=== PATIENT | female | born 1970 | race African-American/Black ===

== ENCOUNTER 2017-03-05 15:55 | Emergency (ER) | payer SELFPAY ==
--- NOTE | 2017-03-05 16:17 | ER Document Report ---
HPI - HPI Notes: Patient is a 46-year-old female presents the ED complaining of bilateral ear pain left greater than the right 1 week. Patient states that sometimes she hears an airy sound. Denies any tinnitus, dizziness, or discharge. No recent swimming. Patient states that she does have a history of a perforation to the left tympanic membrane more than 10 years ago. Denies any headache, fever, URI , sore throat, dysphagia, chest pain, palpitations, syncope, cough, wheeze, shortness of breath, abdominal pain, nausea/vomiting/diarrhea, dysuria, joint pains, muscle aches, numbness/tingling, or rash. Patient states she does have an allergy to penicillins-swelling. She does not take any medications daily. Denies any other significant past medical history. Denies any smoking or illicit drug use. - ROS Notes: REVIEW OF SYSTEMS: CONSTITUTIONAL : Denies fever, chills, or sweats. Denies recent illness. EENT: see hpi CARDIOVASCULAR: Denies chest pain. Denies palpitations or racing or irregular heart beat. Denies ankle edema. RESPIRATORY: Denies cough, cold, or chest congestion. Denies shortness of breath, difficulty breathing, or wheezing. GASTROINTESTINAL: Denies abdominal pain or distention. Denies nausea, vomiting , or diarrhea. Denies blood in vomitus, stools, or per rectum. Denies black, tarry stools. Denies constipation. GENITOURINARY: Denies difficulty urinating, painful urination, burning, frequency, blood in urine, or discharge. MUSCULOSKELETAL: Denies back or neck pain or stiffness. Denies joint pain or swelling. SKIN: Denies rash, lesions or sores. NEUROLOGICAL: Denies confusion or altered mental status. Denies passing out or loss of consciousness. Denies dizziness or lightheadedness. Denies headache. Denies weakness or paralysis or loss of use of either side. Denies problems with gait or speech. Denies sensory loss, numbness, or tingling. Denies seizures. PSYCHIATRIC: Denies anxiety or stress. Denies depression, suicidal ideation, or homicidal ideation. ALL OTHER SYSTEMS REVIEWED AND NEGATIVE. Dictation was performed using [employer] voice recognition software - REPRODUCTIVE Reproductive: DENIES: : Past Medical History - Social History Smoking Status: Never Smoker Family History: Arthritis Past Surgical History: Reports: Hx Tubal Ligation - Immunizations Hx Diphtheria, Pertussis, Tetanus Vaccination: Yes Vertical Provider Document - CONSTITUTIONAL Agree With Documented VS: Yes Notes: PHYSICAL EXAMINATION: GENERAL: Well-appearing, well-nourished and in no acute distress. HEAD: Atraumatic, normocephalic. EYES: Pupils equal round and reactive to light, extraocular movements intact, sclera anicteric, conjunctiva are normal. ENT: EAC clear b/l. Non-tender. Lt TM shows large perforation without any evidence or erythema or discharge. Rt TM wnl. Nares patent and without discharge. oropharynx clear without exudates. No tonsilar hypertrophy or erythema. Moist mucous membranes. No sinus tenderness. NECK: Normal range of motion, supple without lymphadenopathy. No rigidity/ meningismus. LUNGS: Breath sounds clear to auscultation bilaterally and equal. No wheezes rales or rhonchi. HEART: Regular rate and rhythm without murmurs, rubs, gallops. Extremities: No cyanosis, clubbing, or edema b/l. Peripheral pulses 2+. Capillary refill less than 3 seconds. NEUROLOGICAL: Cranial nerves grossly intact. Normal speech, normal gait. Normal sensory, motor exams PSYCH: Normal mood, normal affect. SKIN: Warm, Dry, normal turgor, no rashes or lesions noted. - INFECTION CONTROL TRAVEL OUTSIDE OF THE [place] IN LAST 30 DAYS: No Course - Re-evaluation Re-evalutation: 03/05/17 16:34 Patient is an afebrile, well-hydrated, 46-year-old female presents to the ED with a left TM perforation; although history would suggest chronic. Vitals are stable. PE otherwise unremarkable. Low suspicion for any mastoiditis, sepsis, meningitis, pharyngeal abscess, jerome's, or other systemic infection at this time based on H&P. I will give the patient clindamycin twice a day for 1 week as precaution due to the increased pain in the ear perforation. I would like her to call ENT on Tuesday to schedule an appointment. Recheck with your PCM this week as well. Return to the ED with any worsening/concerning symptoms otherwise as reviewed in discharge. Patient is in agreement. Discharge - Discharge Clinical Impression: Perforation of left tympanic membrane, Otalgia of both ears Condition: Stable Disposition: HOME, SELF-CARE Additional Instructions: Keep the ears clean Avoid use of Q-tips Tylenol as needed Take medication as directed Call ENT on Tuesday for an appointment and further evaluation Recheck with your PCM this week Return to the ED with any worsening symptoms and/or development of fever, headache, dizziness, ringing in ears, neck pain/stiffness, chest pain, palpitations, syncope, shortness of breath, trouble breathing, abdominal pain, n /v/d, numbness/tingling, or other worsening symptoms that are concerning to you. Please contact the following office for an appointment tomorrow or returm immediately if there are any other concerns [facility] Address: [address] [place] [id number] Prescriptions: Clindamycin HCl [Cleocin 300 mg Capsule] 300 mg PO BID #14 capsule Referrals: WOODROW LUCERO MD [ACTIVE STAFF] - Follow up in 3-5 days
[2017-03-05 16:40] VITALS: BP 143/86
== END 2017-03-05 16:42 | disposition home or self-care (01) ==
LOC: ER 15:55
DX: H72.92 Unspecified perforation of tympanic membrane, left ear (principal); H92.03 Otalgia, bilateral
CPT/HCPCS: 99282

== ENCOUNTER 2017-07-05 11:29 | Emergency (ER) | payer SELFPAY ==
[2017-07-05 11:35] VITALS: BP 167/91
--- NOTE | 2017-07-05 11:44 | ER Document Report ---
ED Medical Screen (RME) - General Chief Complaint: Abdominal Pain Stated Complaint: ABDOMINAL PAIN Time Seen by Provider: 07/05/17 11:42 Notes: Patient with right upper quadrant pain for 1 week this gotten worse over the last 2 days. Some nausea. She states she does have a history of fibroid tumors. She denies any previous abdominal surgeries other than tubal ligation. TRAVEL OUTSIDE OF THE [place] IN LAST 30 DAYS: No - Related Data Allergies/Adverse Reactions: naproxen Allergy (Verified 07/05/17 11:33) Penicillins Allergy (Verified 07/05/17 11:33) Home Medications: Current Home Medications No Home Medications 07/05/17 [History] Past Medical History - Social History Chew tobacco use (# tins/day): No Frequency of alcohol use: Rare Drug Abuse: None Renal/ Medical History: Denies: Hx Peritoneal Dialysis Past Surgical History: Reports: Hx Tubal Ligation - Immunizations Hx Diphtheria, Pertussis, Tetanus Vaccination: Yes Physical Exam - Vital signs Vitals: Temp Pulse Resp BP Pulse Ox 98.3 F 76 16 167/91 H 99 07/05/17 11:34 07/05/17 11:34 07/05/17 11:34 07/05/17 11:34 07/05/17 11:34 Course - Vital Signs Vital signs: Temp Pulse Resp BP Pulse Ox 98.3 F 76 16 167/91 H 99 07/05/17 11:34 07/05/17 11:34 07/05/17 11:34 07/05/17 11:34 07/05/17 11:34
[2017-07-05 12:26] LABS: APPEARANCE,URINE CLOUDY; BILIRUBIN,URINE NEGATIVE (NEGATIVE); GLUCOSE, URINE NEGATIVE (NEGATIVE); KETONES,URINE NEGATIVE (NEGATIVE); LEUKOCYTE ESTERASE,URINE TRACE (NEGATIVE); NITRITE,URINE NEGATIVE (NEGATIVE); PROTEIN,URINE NEGATIVE (NEGATIVE); URINE SPECIFIC GRAVITY 1.013; UROBILINOGEN,URINE NEGATIVE mg/dL (<2.0)
[2017-07-05 12:38] LABS: ALANINE AMINOTRANSFERASE 23 U/L (9-52); ALBUMIN 3.9 g/dL (3.5-5.0); ALKALINE PHOSPHATASE 58 U/L (38-126); ANION GAP 12 (5-19); ASPARTATE AMINO TRANSFERASE 19 U/L (14-36); BILIRUBIN,DIRECT 0.4 mg/dL (0.0-0.4); BILIRUBIN,TOTAL 0.4 mg/dL (0.2-1.3); BLOOD UREA NITROGEN 13 mg/dL (7-20); CARBON DIOXIDE 27 mmol/L (22-30); CHLORIDE 104 mmol/L (98-107); CREATININE RESULT 0.82 mg/dL (0.52-1.25); GLUCOSE 117 mg/dL (75-110); SODIUM 142.9 mmol/L (137-145); TOTAL PROTEIN 7.6 g/dL (6.3-8.2)
[2017-07-05 14:38] LABS: ABSOLUTE BASOPHILS # (AUTO) 0.1 10^3/uL (0.0-0.2); ABSOLUTE EOSINOPHILS # (AUTO) 0.2 10^3/uL (0.0-0.6); ABSOLUTE LYMPHOCYTES (AUTO) 1.6 10^3/uL (0.5-4.7); ABSOLUTE MONOCYTES (AUTO) 0.5 10^3/uL (0.1-1.4); ABSOLUTE NEUT (AUTO) 3.7 10^3/uL (1.7-8.2); BASOPHILS % (AUTO) 1.4 % (0-2); EOSINOPHILS % (AUTO) 2.9 % (0-6); HEMATOCRIT 30.3 % (36.0-47.0); HEMOGLOBIN 9.1 g/dL (12.0-15.5); LYMPHOCYTES % (AUTO) 26.6 % (13-45); MEAN CORPUSCULAR HEMOGLOBIN 18.3 pg (27.0-33.4); MONOCYTES % (AUTO) 7.9 % (3-13); RED BLOOD COUNT 4.97 10^6/uL (3.72-5.28); RED CELL DISTRIBUTION WIDTH 20.7 % (11.5-14.0); SEGMENTED NEUTROPHILS % (AUTO) 61.2 % (42-78); WHITE BLOOD COUNT 6.1 10^3/uL (4.0-10.5)
--- NOTE | 2017-07-05 14:51 | RADIOLOGY REPORT (SQ) ---
EXAM DESCRIPTION: U/S ABDOMEN LIMITED W/O DOP COMPLETED DATE/TIME: 07/05/2017 2:12 pm REASON FOR STUDY: pain ruq COMPARISON: None. TECHNIQUE: Dynamic and static grayscale images acquired of the abdomen and recorded on PACS. Additio nal selected color Doppler and spectral images recorded. LIMITATIONS: None. FINDINGS: PANCREAS: No masses. Visualized pancreatic duct normal caliber. LIVER: No masses. Echotexture normal. LIVER VASCULATURE: Normal directional flow of the main portal vein and hepatic veins. GALLBLADDER: Gallbladder contracted. Echogenic foci with associated acoustical shadowing suggestive of gallstones.(MEHNAZ sign) ULTRASOUND-DETECTED RAY'S SIGN: Negative. INTRAHEPATIC DUCTS AND COMMON DUCT: CBD and intrahepatic ducts normal caliber. No filling defects. INFERIOR VENA CAVA: Normal flow. AORTA: No aneurysm. RIGHT KIDNEY: Normal size. Normal echogenicity. No solid or suspicious masses. No hydronephrosis. No calcifications. PERITONEAL AND RIGHT PLEURAL SPACE: No ascites or effusions. OTHER: No other significant findings. IMPRESSION: Cholelithiasis. TECHNICAL DOCUMENTATION: JOB ID: [id number] [employer]- All Rights Reserved
[2017-07-05 14:58] LABS: MEAN CORPUSCULAR VOLUME 61 fl (80-97)
[2017-07-05 15:00] LABS: ANISOCYTOSIS 2+; HYPOCHROMASIA 3+; MICROCYTOSIS 3+; OVALOCYTES SLIGHT; POIKILOCYTOSIS SLIGHT; POLYCHROMASIA SLIGHT
--- NOTE | 2017-07-05 15:59 | ER Document Report ---
ED General - General Chief Complaint: Abdominal Pain Stated Complaint: ABDOMINAL PAIN Time Seen by Provider: 07/05/17 11:42 TRAVEL OUTSIDE OF THE [place] IN LAST 30 DAYS: No - HPI Patient complains to provider of: Right upper quadrant abdominal pain Notes: Patient coming in for evaluation of right upper quadrant abdominal pain. Patient denies any nausea vomiting patient states bloated patient also complaining about amenorrhea. Patient states has a history of fibroids has not had a menstrual cycle approximately 2 months. Patient states she felt that she was probably undergoing early menopause. Patient states abdominal pain increased with food. Otherwise patient is resting comfortably. - Related Data Allergies/Adverse Reactions: naproxen Allergy (Verified 07/05/17 11:33) Penicillins Allergy (Verified 07/05/17 11:33) Past Medical History - Social History Smoking Status: Never Smoker Chew tobacco use (# tins/day): No Frequency of alcohol use: Rare Drug Abuse: None Family History: Arthritis Patient has suicidal ideation: No Patient has homicidal ideation: No Renal/ Medical History: Denies: Hx Peritoneal Dialysis Past Surgical History: Reports: Hx Tubal Ligation - Immunizations Hx Diphtheria, Pertussis, Tetanus Vaccination: Yes Review of Systems - Review of Systems Constitutional: No symptoms reported EENT: No symptoms reported Cardiovascular: No symptoms reported Respiratory: No symptoms reported Gastrointestinal: Abdominal pain, Nausea, Vomiting Genitourinary: No symptoms reported Female Genitourinary: No symptoms reported Musculoskeletal: No symptoms reported Skin: No symptoms reported Hematologic/Lymphatic: No symptoms reported Neurological/Psychological: No symptoms reported -: Yes All other systems reviewed and negative Physical Exam - Vital signs Vitals: Temp Pulse Resp BP Pulse Ox 98.3 F 76 16 167/91 H 99 07/05/17 11:34 07/05/17 11:34 07/05/17 11:34 07/05/17 11:34 07/05/17 11:34 Interpretation: Normal - General General appearance: Appears well, Alert - HEENT Head: Normocephalic, Atraumatic Eyes: Normal Pupils: PERRL - Respiratory Respiratory status: No respiratory distress Chest status: Nontender Breath sounds: Normal Chest palpation: Normal - Cardiovascular Rhythm: Regular Heart sounds: Normal auscultation Murmur: No - Abdominal Inspection: Normal Distension: No distension Bowel sounds: Normal Tenderness: Tender - Right upper quadrant tenderness mild no McBurney's point tenderness no Melara sign no guarding no rebound Organomegaly: No organomegaly - Back Back: Normal, Nontender - Extremities General upper extremity: Normal inspection, Nontender, Normal color, Normal ROM , Normal temperature General lower extremity: Normal inspection, Nontender, Normal color, Normal ROM , Normal temperature, Normal weight bearing. No: Parker's sign - Neurological Neuro grossly intact: Yes Cognition: Normal Orientation: AAOx4 Soraya Coma Scale Eye Opening: Spontaneous [place] Coma Scale Verbal: Oriented [place] Coma Scale Motor: Obeys Commands [place] Coma Scale Total: 15 Speech: Normal Motor strength normal: LUE, RUE, LLE, RLE Sensory: Normal - Psychological Associated symptoms: Normal affect, Normal mood - Skin Skin Temperature: Warm Skin Moisture: Dry Skin Color: Normal Course - Re-evaluation Re-evalutation: 07/05/17 18:49 Patient evaluation only shows cholelithiasis. Education the patient about gallstones was provided. Patient was encouraged follow-up primary care physician or surgeons provided. Patient states understanding will be discharged home. The patient presents with abdominal pain without signs of peritonitis or other life-threatening or serious etiology. The patient appears stable for discharge and has been instructed to return immediately if the symptoms worsen in any way, or in 8-12hr if not improved for re-evaluation. The patient has been instructed to return if the symptoms worsen or change in any way. - Vital Signs Vital signs: Temp Pulse Resp BP Pulse Ox 98.3 F 76 16 167/91 H 99 07/05/17 11:34 07/05/17 11:34 07/05/17 11:34 07/05/17 11:34 07/05/17 11:34 - Laboratory Result Diagrams: 07/05/17 13:30 07/05/17 11:55 Laboratory results interpreted by me: 07/05/17 07/05/17 07/05/17 11:55 11:55 13:30 Hgb 9.1 L Hct 30.3 L MCV 61 L MCH 18.3 L MCHC 30.0 L RDW 20.7 H Glucose 117 H Ur Leukocyte Esterase TRACE H Discharge - Discharge Clinical Impression: RUQ abdominal pain Cholelithiasis Qualifiers: Cholelithiasis location: gallbladder Cholecystitis presence: without cholecystitis Biliary obstruction: without biliary obstruction Qualified Code(s) : K80.20 - Calculus of gallbladder without cholecystitis without obstruction Condition: Good Disposition: HOME, SELF-CARE Instructions: Abdominal Pain ([facility]), Surgeon Additional Instructions: Your ultrasound today shows that you have gallstones. Gallstones can cause upper abdominal pain whenever you eat something with a lot of excess grease and/ or fat. These avoid these foods sometimes gallstones will continue to cause pain you can have your gallbladder removed by surgeon. At this time your laboratory studies not show any signs of infection your ultrasound does not show any signs of infection or need for emergent surgery. Please take medication as prescribed for your symptoms return to the ER symptoms worsen I recommend follow-up with your primary care or the surgeon provided. Prescriptions: Dicyclomine HCl [Bentyl 20 mg Tablet] 20 mg PO QID #40 tablet Metoclopramide HCl [Reglan] 5 mg PO Q6 #30 tablet [facility] [Primary Care Provider] - Follow up as needed
== END 2017-07-05 16:09 | disposition home or self-care (01) ==
LOC: ER 11:29
DX: K80.20 Calculus of gallbladder without cholecystitis without obstruction (principal); R10.11 Right upper quadrant pain
CPT/HCPCS: 36415; 76705; 80053; 81001; 81025; 83690; 85025; 99284

== ENCOUNTER 2018-07-04 16:46 | Emergency (ER) | payer SELFPAY ==
[2018-07-04 16:53] VITALS: BP 144/83
--- NOTE | 2018-07-04 18:22 | ER Document Report ---
ED Extremity Problem, Lower - General Chief Complaint: Leg Pain Stated Complaint: LEFT LEG PAIN Time Seen by Provider: 07/04/18 17:08 Mode of Arrival: Ambulatory Information source: Patient Notes: Patient is a 48-year-old morbidly obese female comes emergency room complaining of left leg pain. Patient states is been going on for months but is gotten worse in the past few days. Patient states that it is kind of like a toothache throbbing pain in the runs from the crease of her left groin down through the lower leg. He has both anterior and posterior she states that used to does wake her up out of sleep because it hurts so bad now she is having a difficult time falling asleep because it hurts constantly. 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 States she is on her feet constantly throughout the day never sits down. When she is home and ice when the pain starts. She denies any history of trauma denies any long trips and states she is never been one spot long enough to sit. She does not smoke and she does not have diabetes. She is not taking any additional hormones. She states she is very active but the pain is getting to the point where it is stopping her from becoming active. TRAVEL OUTSIDE OF THE [place] IN LAST 30 DAYS: No - HPI Patient complains to provider of: Pain. No: Injury, Swelling Location: Knee, Leg, Thigh Occurred: Other Where: Home - 1 month worse the last week., Work Onset/Duration: Gradual, Persistent, Worse Quality of pain: Pressure, Sharp, Throbbing Severity: Severe Pain Level: 4 Recent injury: No Associated symptoms: Weak Exacerbated by: Movement, Walking Relieved by: Nothing - Related Data Allergies/Adverse Reactions: naproxen Allergy (Verified 07/04/18 16:47) Penicillins Allergy (Verified 07/04/18 16:47) Past Medical History - General Information source: Patient - Social History Smoking Status: Never Smoker Cigarette use (# per day): No Chew tobacco use (# tins/day): No Smoking Education Provided: No Frequency of alcohol use: None Drug Abuse: None Lives with: Family Family History: Reviewed & Not Pertinent, Arthritis Patient has suicidal ideation: No Patient has homicidal ideation: No Renal/ Medical History: Denies: Hx Peritoneal Dialysis Past Surgical History: Reports: Hx Tubal Ligation - Immunizations Hx Diphtheria, Pertussis, Tetanus Vaccination: Yes Review of Systems - Review of Systems Constitutional: No symptoms reported EENT: No symptoms reported Cardiovascular: No symptoms reported Respiratory: No symptoms reported Gastrointestinal: No symptoms reported Genitourinary: No symptoms reported Female Genitourinary: No symptoms reported Musculoskeletal: See HPI, Muscle pain Skin: No symptoms reported Hematologic/Lymphatic: No symptoms reported Neurological/Psychological: No symptoms reported -: Yes All other systems reviewed and negative Physical Exam - Vital signs Vitals: Temp Pulse Resp BP Pulse Ox 98.3 F 86 18 144/83 H 98 07/04/18 16:51 07/04/18 16:51 07/04/18 16:51 07/04/18 16:51 07/04/18 16:51 Interpretation: Hypertensive - Notes Notes: PHYSICAL EXAMINATION: GENERAL: Patient is a well-nourished well-developed 48-year-old obese female who is in no apparent distress on time of physical exam. Patient does not even appear uncomfortable at this point. HEAD: Atraumatic, normocephalic. EYES: Pupils equal round and reactive to light, extraocular movements intact, conjunctiva are normal. ENT: Nares patent, oropharynx clear without exudates. Moist mucous membranes. NECK: Normal range of motion, supple without lymphadenopathy LUNGS: Breath sounds clear to auscultation bilaterally and equal. No wheezes rales or rhonchi. HEART: Regular rate and rhythm without murmurs ABDOMEN: Soft, nontender, nondistended abdomen. No guarding, no rebound. No masses appreciated. Female : deferred Musculoskeletal: Physical exam the area of concern is patient's left leg. Physical exam when compared to the right leg they both appear normal and equal. When you compare temperatures from the upper groin to the lower leg temperatures are normal and equal. Patient has full range of motion of both bilateral lower extremities without any difficulty. Palpation of the left groin does not show any discomfort or pain. Passive rotation of the left hip and groin again shows no discomfort or pain. Palpation of the popliteal area shows a good popliteal pulse with full flexion-extension of the knee with no discomfort or pain. Palpation of patient's posterior calf on the left side around the gastrocnemius does show that she has some superficial thrombophlebitis in it that are very tender to palpation. She has a semi- positive Homans. By this I mean she has yet might hurt but I do not know if it does or not attitude. Patient has good pulses on the dorsalis pedis and has good flexion-extension at the ankle. Patient's straight leg raise on the left side is negative. She has full range of motion with the left extremity. NEUROLOGICAL: Cranial nerves grossly intact. Normal speech, normal gait. Normal sensory, motor exams PSYCH: Normal mood, normal affect. SKIN: Warm, Dry, normal turgor, no rashes or lesions noted. Course - Re-evaluation Re-evalutation: 07/04/18 19:07 Patient came in with complaints of the lower extremity pain she also talked about getting some shortness of breath and she also talked about her left hand pain where she had 2 fingers supposed to go flaccid yesterday and then they came back to normal. At this point I was more concerned about her lower extremities possibility of a DVT which is something that could harm her. The hand I did not really delve into because at was a hindsight on her part and it was hand pain for a year but had an acute reaction yesterday. Patient is fully using her left hand and at this point was not 1 of my concerns in ER. While patient was getting her blood drawn she is telling the tech that is taking too long and that she might just get up and leave the ER. Patient has been here less than 2 hours and I have done an extensive workup based on the history that she gave me. - Vital Signs Vital signs: Temp Pulse Resp BP Pulse Ox 98.3 F 86 18 144/83 H 98 07/04/18 16:51 07/04/18 16:51 07/04/18 16:51 07/04/18 16:51 07/04/18 16:51 - Laboratory Result Diagrams: 07/04/18 18:28 07/04/18 18:28 Laboratory results interpreted by me: 07/04/18 07/04/18 18:28 18:28 Hgb 10.5 L Hct 32.3 L MCV 70 L MCH 22.8 L RDW 17.5 H Plt Count 464 H Sodium 145.4 H Est GFR (Non-Af Amer) 55 L Discharge - Discharge Clinical Impression: Femoroacetabular impingement of left hip Condition: Stable Disposition: HOME, SELF-CARE Instructions: Arthritis ([facility]) Additional Instructions: I do not have a handout on the cause of your hip pain. But if you were to look it up it is under CAM type femoral acetabular impingement basically with this means that she has severe arthritis in that hip area and it is causing problems with a local nerve. Given the description you gave me we are going to treat this with a few different items. In the meantime you need to follow-up with an orthopedist. As I explained to you from what I read very quickly there we are some types of treatment are not as rewarding as others. At age 50 and above they do not believe that arthroscopic surgery is as beneficial as it is in younger years. Currently the train of thought from what I can read was that over age 50 total hip replacement seems to be the solution. Since you are in that near age group you may want to move a little faster to get a referral to an orthopedist. If you do not have any primary care physician you may attempt to use the [facility] facility. I would not treat you with 3 different methods of medications at this time a steroid to see if it will help alleviate the inflammation, a muscle relaxer for the larger muscles in the area and a little pain medication to help with sleep at night. This is can only be a short -term fix from the ER we cannot write for narcotic medications on a regular basis and this is where you need to find a primary care provider. Should you have any concerns or problems you may return to ER for a recheck however. Prescriptions: Hydrocodone/Acetaminophen [Madelia 7.5-325 Tablet] 1 each PO Q8 PRN #12 tablet PRN Reason: Methocarbamol [Robaxin-750] 750 mg PO TID PRN #21 tablet PRN Reason: Prednisone 10 mg PO ASDIR 6 Days #1 tab.ds.pk Forms: Return to Work [facility] [NO LOCAL MD] - Follow up as needed TRENTON JAIMES MD [ACTIVE STAFF] - Follow up as needed
[2018-07-04 18:45] LABS: ABSOLUTE BASOPHILS # (AUTO) 0.1 10^3/uL (0.0-0.2); ABSOLUTE EOSINOPHILS # (AUTO) 0.2 10^3/uL (0.0-0.6); ABSOLUTE LYMPHOCYTES (AUTO) 2.2 10^3/uL (0.5-4.7); ABSOLUTE MONOCYTES (AUTO) 0.6 10^3/uL (0.1-1.4); ABSOLUTE NEUT (AUTO) 4.8 10^3/uL (1.7-8.2); BASOPHILS % (AUTO) 1.2 % (0-2); EOSINOPHILS % (AUTO) 2.3 % (0-6); HEMATOCRIT 32.3 % (36.0-47.0); HEMOGLOBIN 10.5 g/dL (12.0-15.5); LYMPHOCYTES % (AUTO) 27.9 % (13-45); MEAN CORPUSCULAR HEMOGLOBIN 22.8 pg (27.0-33.4); MEAN CORPUSCULAR HGB CONC 32.5 g/dL (32.0-36.0); MEAN CORPUSCULAR VOLUME 70 fl (80-97); MONOCYTES % (AUTO) 7.6 % (3-13); PLATELET COUNT 464 10^3/uL (150-450); RED BLOOD COUNT 4.62 10^6/uL (3.72-5.28); RED CELL DISTRIBUTION WIDTH 17.5 % (11.5-14.0); TOTAL CELLS COUNTED % (AUTO) 100 %; WHITE BLOOD COUNT 7.9 10^3/uL (4.0-10.5)
--- NOTE | 2018-07-04 18:53 | RADIOLOGY REPORT (SQ) ---
EXAM DESCRIPTION: KNEE LEFT 3 VIEWS COMPLETED DATE/TIME: 07/04/2018 6:11 pm REASON FOR STUDY: pain COMPARISON: None. NUMBER OF VIEWS: Three views. TECHNIQUE: AP, lateral, and sunrise patella radiographic images acquired of the left knee. LIMITATIONS: None. FINDINGS: MINERALIZATION: Normal. BONES: No acute fracture or dislocation. No worrisome bone lesions. There is heterotopic ossificati on at the attachment of the soleus along the posterior tibia. JOINT: No effusion. SOFT TISSUES: No soft tissue swelling. No radio-opaque foreign body. OTHER: No other significant finding. IMPRESSION: No fracture or dislocation of the left knee. The joint spaces are well preserved. MRI may be used to more sensitively evaluate for internal derangement if desired. TECHNICAL DOCUMENTATION: JOB ID: [id number] [employer]- All Rights Reserved Reading location - IP/workstation name: [email or web address]
--- NOTE | 2018-07-04 18:57 | RADIOLOGY REPORT (SQ) ---
EXAM DESCRIPTION: HIP LEFT AP/LATERAL COMPLETED DATE/TIME: 07/04/2018 6:11 pm REASON FOR STUDY: Pain COMPARISON: None. NUMBER OF VIEWS: Two views. TECHNIQUE: AP pelvis and additional frog-leg view of the left hip. LIMITATIONS: None. FINDINGS: MINERALIZATION: Normal. LEFT HIP: No fracture or dislocation. No worrisome bone lesions. There is asymmetrically severe, ne ar total superior joint space loss and osteophytosis with degenerative subchondral cyst formation of the acetabulum and femoral head. There is possible asphericity of the femoral head neck junction. RIGHT HIP: No fracture or dislocation. No worrisome bone lesions. Moderate superior joint space betsy rowing and osteophytosis. PUBIS AND ISCHIUM: No fracture. PELVIS: No fracture. SACRUM: No fracture or dislocation. No worrisome bone lesions. LOWER LUMBAR SPINE: No fracture or dislocation. No worrisome bone lesions. No significant disc disea se. SOFT TISSUES: No findings. OTHER: No other significant finding. IMPRESSION: No fracture dislocation of the left hip. 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 There is possible asphericity of the femoral head neck junction which can be seen in CAM type femoroacetabular impingem ent. Arthrosis and morphology of the femoral head and neck may be further evaluated by nonemergent C T or MRI if desired. TECHNICAL DOCUMENTATION: JOB ID: [id number] [employer]- All Rights Reserved Reading location - IP/workstation name: [email or web address]
[2018-07-04 19:06] LABS: ALANINE AMINOTRANSFERASE 15 U/L (9-52); ALKALINE PHOSPHATASE 70 U/L (38-126); ANION GAP 12 (5-19); ASPARTATE AMINO TRANSFERASE 22 U/L (14-36); BILIRUBIN,DIRECT 0.3 mg/dL (0.0-0.4); BILIRUBIN,TOTAL 0.4 mg/dL (0.2-1.3); BLOOD UREA NITROGEN 16 mg/dL (7-20); CALCIUM 9.3 mg/dL (8.4-10.2); CARBON DIOXIDE 29 mmol/L (22-30); CHLORIDE 104 mmol/L (98-107); GLUCOSE 87 mg/dL (75-110); POTASSIUM 4.2 mmol/L (3.6-5.0); SODIUM 145.4 mmol/L (137-145)
[2018-07-04 19:09] LABS: C-REACTIVE PROTEIN < 5.0 mg/L (<10.0)
[2018-07-04 20:32] LABS: ERYTHROCYTE SEDIMENTATION RATE 24 mm/hr (0-20)
== END 2018-07-04 20:57 | disposition home or self-care (01) ==
LOC: ER 16:46
DX: M25.852 Other specified joint disorders, left hip (principal); I80.02 Phlebitis and thrombophlebitis of superficial vessels of left lower extremity; E66.01 Morbid (severe) obesity due to excess calories; M79.642 Pain in left hand; R06.02 Shortness of breath; Z88.8 Allergy status to other drugs, medicaments and biological substances; Z88.0 Allergy status to penicillin
CPT/HCPCS: 36415; 80053; 85025; 85379; 85652; 86140; 99283

== ENCOUNTER 2018-11-07 16:01 | Emergency (ER) | payer SELFPAY ==
--- NOTE | 2018-11-07 16:23 | ER Document Report ---
HPI - HPI Time Seen by Provider: 11/07/18 16:21 Pain Level: 5 Notes: 48-year-old female presents to the ED for complaints of having numbness and tingling in her fingers for the last couple of years but has become progressively worse over the last couple months. Patient was supposed to be evaluated for carpal tunnel surgery but never followed up with family services specialist. Denies any recent trauma, denies being a diabetic. Patient states her numbness and tingling gets worse when she flexes her hands. Denies fevers, chills, chest pain,palpitations, shortness of breath, dyspnea, nausea, vomiting, diarrhea, abdominal pain, hematuria,blurred vision, double vision, loss of vision, speech changes, LH, dizziness, syncope, headaches, wheezing, ST, URI, neck pain, weakness, bowel or bladder dysfunction, saddle anesthesia,n/t to bilateral lower extremities equally, muscle paralysis, weakness in bilateral upper or lower extremities equally or rash. - REPRODUCTIVE Reproductive: DENIES: : Past Medical History - General Information source: Patient - Social History Smoking Status: Current Every Day Smoker Family History: Reviewed & Not Pertinent, Arthritis Renal/ Medical History: Denies: Hx Peritoneal Dialysis Past Surgical History: Reports: Hx Tubal Ligation - Immunizations Hx Diphtheria, Pertussis, Tetanus Vaccination: Yes Vertical Provider Document - CONSTITUTIONAL Agree With Documented VS: Yes Notes: PHYSICAL EXAMINATION: GENERAL: Well-appearing, well-nourished and in no acute distress. HEAD: Atraumatic, normocephalic. EYES: Pupils equal round and reactive to light, extraocular movements intact, sclera anicteric, conjunctiva are normal. ENT: Nares patent, oropharynx clear without exudates. Moist mucous membranes. NECK: Normal range of motion, supple without lymphadenopathy LUNGS: Breath sounds clear to auscultation bilaterally and equal. No wheezes rales or rhonchi. HEART: Regular rate and rhythm without murmurs ABDOMEN: Soft, nontender, nondistended abdomen. No guarding, no rebound. No masses appreciated. Musculoskeletal: Normal range of motion, no pitting or edema. No cyanosis. noted bilateral wrist pain with flexion, extension, inversion, eversion of wrist. digits in right and left with full aprom.. 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 Snuffbox tenderness positive on bilaterally. radial pulses + 2 BUE equally. Negative kanavels sign. No open wounds or drainage from wrist. No vascular compromise.No body crepitus or focal area of TTP. Limited ROM with flexion, extension, ulnar/radial deviation. Motor and sensory function of ulnar, radial, medial nerves intact bilaterally and equally. NEUROLOGICAL: Cranial nerves grossly intact. Normal speech, normal gait. Nor mal sensory, motor exams. PSYCH: Normal mood, normal affect. SKIN: Warm, Dry, normal turgor, no rashes or lesions noted. - INFECTION CONTROL TRAVEL OUTSIDE OF THE [place] IN LAST 30 DAYS: No Course - Re-evaluation Re-evalutation: 11/07/18 17:22 48-year-old female presents the ED for evaluation of numbness or tingling to her fingers discussed with patient that she does have carpal tunnel syndrome and will need to be evaluated by a orthopedic surgeon for carpal tunnel release. Discussed will assess for any occult fractures or dislocations on x-rays. Patient placed in a Velcro cock-up brace for both wrists. Apply heat 20 minutes on 20 minutes off several times a day. After performing a Medical Screening Examination, I estimate there is LOW risk for OPEN FRACTURE, COMPARTMENT SYNDROME, DEEP VENOUS THROMBOSIS, ACUTE TENDON RUPTURE, or NEUROVASCULAR INJURY thus I consider the discharge disposition reasonable. I have reevaluated this patient multiple times and no significant life threatening changes are noted. The patient and I have discussed the diagnosis and risks, and we agree with discharging home to closely follow-up with their primary doctor or the referral orthopedist with the understanding that symptoms and presentations can change. We also discussed returning to the Emergency Department immediately if new or worsening symptoms occur. We have discussed the symptoms which are most concerning (e.g., changing or worsening pain, numbness, weakness) that necessitate immediate return - Vital Signs Vital signs: Temp Pulse Resp BP Pulse Ox 98.7 F 101 H 18 162/90 H 98 11/07/18 16:12 11/07/18 16:12 11/07/18 16:12 11/07/18 16:12 11/07/18 16:12 Discharge - Discharge Clinical Impression: Chronic hand pain Qualifiers: Laterality: unspecified laterality Qualified Code(s): M79.643 - Pain in unspecified hand Condition: Stable Disposition: HOME, SELF-CARE Instructions: Carpal Tunnel Syndrome ([facility]) Additional Instructions: Carpal Tunnel Syndrome Your examination suggests carpal tunnel syndrome. This syndrome is due to pressure on a nerve in the wrist. The pressure may be caused by an old injury, hard work using the wrist, work involving repeated motions of the hand, wrist positions that keep pressure on the joint, or arthritis in the wrist. Typical symptoms are tingling, numbness, and pain in the palm, thumb, index and middle fingers, and one side of the ring finger. Often a splint, ice packs, and antiinflammatory medication make the symptoms go away. If the physician feels that your problem is chronic, you will be referred to a specialist for further care. If symptoms do not go away, carpal tunnel syndrome may require surgery. You should call the doctor if pain increases, if you develop difficulty using the thumb or fingers, or if major swelling occurs. Return immediately for any new or worsening symptoms. Follow up with primary care provider, call tomorrow to make followup appointment. Prescriptions: Acetaminophen 1,000 mg PO Q6HP PRN #20 tablet PRN Reason: Forms: Return to Work Referrals: PIERRE RENDON DO [ACTIVE STAFF] - Follow up in 3-5 days VANDANA LARA MD [COMMUNITY BASED STAFF] - Follow up in 3-5 days
[2018-11-07 17:31] VITALS: BP 141/85
--- NOTE | 2018-11-07 17:31 | RADIOLOGY REPORT (SQ) ---
EXAM DESCRIPTION: WRIST BILATERAL 2 VIEWS COMPLETED DATE/TIME: 11/07/2018 5:15 pm REASON FOR STUDY: n/t x 2 months COMPARISON: None. NUMBER OF VIEWS: Four views. TECHNIQUE: AP and lateral radiographic images acquired of the right and left wrist. LIMITATIONS: None. FINDINGS: MINERALIZATION: Normal. BONES: Old fracture right ulnar styloid. No acute fracture or dislocation. No worrisome bone lesion s. Normal alignment. SOFT TISSUES: No soft tissue swelling. No foreign body. OTHER: No other significant finding. IMPRESSION: NO RADIOGRAPHIC EVIDENCE OF ACUTE INJURY. TECHNICAL DOCUMENTATION: JOB ID: [id number] [employer]- All Rights Reserved Reading location - IP/workstation name: [email or web address]
== END 2018-11-07 17:28 | disposition home or self-care (01) ==
LOC: ER 16:01
DX: M79.643 Pain in unspecified hand (principal); R20.0 Anesthesia of skin; F17.200 Nicotine dependence, unspecified, uncomplicated; G56.03 Carpal tunnel syndrome, bilateral upper limbs
CPT/HCPCS: 99283; 73100; L3908 ×2

== ENCOUNTER 2019-03-30 15:47 | Emergency (ER) | payer SELFPAY ==
[2019-03-30 15:53] VITALS: BP 140/87
[2019-03-30] MEDS ORDERED: HYDROCODONE/ACETAMINOPHEN 5-325 MG TABLET PO ONE (16:56)
[2019-03-30] MEDS ORDERED: IBUPROFEN 600 MG TABLET PO ONE (16:56)
--- NOTE | 2019-03-30 17:06 | ER Document Report ---
HPI - HPI Time Seen by Provider: 03/30/19 16:40 Pain Level: 0 Notes: Patient is a 48-year-old female presented to the emergency department with chief complaint of possible insect bite to her right knee. Patient reports she felt some pain behind her knee yesterday and then this morning she woke up with a swollen area. Patient thinks she may have been bitten by something. Patient denies any fevers, nausea, vomiting or diarrhea. - CONSTITUTIONAL Constitutional: REPORTS: Chills. DENIES: Fever - EENT EENT: DENIES: Sore Throat, Ear Pain, Eye problems - NEURO Neurology: DENIES: Headache, Weakness, Vision blurred, Dizzinesss / Vertigo - CARDIOVASCULAR Cardiovascular: DENIES: Chest pain - RESPIRATORY Respiratory: DENIES: Trouble Breathing, Coughing - GASTROINTESTINAL Gastrointestinal: DENIES: Abdominal Pain, Black / Bloody Stools - REPRODUCTIVE Reproductive: DENIES: : - MUSCULOSKELETAL Musculoskeletal: DENIES: Extremity pain Past Medical History - General Information source: Patient - Social History Smoking Status: Never Smoker Chew tobacco use (# tins/day): No Frequency of alcohol use: Occasional Drug Abuse: None Family History: Reviewed & Not Pertinent, Arthritis Patient has suicidal ideation: No Patient has homicidal ideation: No - Medical History Medical History: Negative Renal/ Medical History: Denies: Hx Peritoneal Dialysis Past Surgical History: Reports: Hx Tubal Ligation - Immunizations Hx Diphtheria, Pertussis, Tetanus Vaccination: Yes Vertical Provider Document - CONSTITUTIONAL Notes: PHYSICAL EXAMINATION: GENERAL: Well-appearing, well-nourished and in no acute distress. HEAD: Atraumatic, normocephalic. EYES: Pupils equal round extraocular movements intact, conjunctiva are normal. ENT: Nares patent NECK: Normal range of motion LUNGS: No respiratory distress Musculoskeletal: Normal range of motion NEUROLOGICAL: Normal speech, normal gait. PSYCH: Normal mood, normal affect. SKIN: Palpable cystic area to posterior right knee, consistent with Daniels's cyst. No surrounding erythema, induration or fluctuance. - INFECTION CONTROL TRAVEL OUTSIDE OF THE [place] IN LAST 30 DAYS: No Course - Re-evaluation Re-evalutation: Patient's pain is most likely being caused by a Daniels's cyst. The mass feels cystic in nature. There is no evidence of abscess. This was discussed with the patient. I did offer to do an ultrasound to confirm Daniels's cyst. Patient declines this. Patient will be discharged home in stable conditions with instructions on how to manage the pain and what to expect with a Daniels's cyst. Patient verbalizes understanding and agreement with this plan. The patient's emergency department workup and current diagnosis were explained to the patient and or family. Follow-up instructions were provided. Medications if prescribed were discussed. Instructions for when to return to the emergency department including specific worrisome symptoms were discussed with the patient and/or family. - Vital Signs Vital signs: Temp Pulse Resp BP Pulse Ox 98.4 F 90 14 140/87 H 96 03/30/19 15:52 03/30/19 15:52 03/30/19 15:52 03/30/19 15:52 03/30/19 15:52 Discharge - Discharge Clinical Impression: Daniels's cyst of knee Qualifiers: Laterality: right Qualified Code(s): M71.21 - Synovial cyst of popliteal space [Daniels], right knee Condition: Stable Disposition: HOME, SELF-CARE Additional Instructions: Daniels's Cyst A Daniels's cyst is a sack of fluid behind the knee. These cysts are common in people with arthritis or old knee injuries. Fluid in the knee joint creates a bulging sack in the "capsule" surrounding the joint. The cyst may start to hurt after activity such as squatting, running, or stair-climbing. Fluid trapped in this sack causes pain and swelling. The swelling from a Daniels's cyst tends to spread down the leg. The lower leg can become red and warm. Rest your knee. Avoid activities such as squatting, lifting, climbing, and running. A knee brace may help you rest the knee. If the pain began suddenly while using the leg, use cold packs for the first two days to reduce pain and swelling. If the knee has been painful for a few days, use warm packs. Anti- inflammatory medicine is often prescribed. Once the pain has improved, gradually return to activity. Exercises to strengthen the quadriceps muscle can make the knee more stable, but you must be careful not to irritate the cyst while exercising. Call the doctor or return if you have increasing swelling or redness, fever, chills, chest pain, or shortness of breath. Please take medications as prescribed. Take ibuprofen 600 mg every 6 hours. Use the narcotic pain medication for severe pain only. Please follow-up with your primary care provider. Read the above directions which may help you to better take care of the cyst. Prescriptions: Hydrocodone/Acetaminophen [Phillips 5-325 mg Tablet] 1 tab PO Q4H #8 tablet Referrals: PANCHO MAYA MD [Primary Care Provider] - Follow up as needed
== END 2019-03-30 17:21 | disposition home or self-care (01) ==
LOC: ER 15:47
DX: M71.21 Synovial cyst of popliteal space [Baker], right knee (principal); Z98.51 Tubal ligation status
CPT/HCPCS: 99281

== ENCOUNTER 2019-11-07 08:15 | Emergency (ER) | payer SELFPAY ==
[2019-11-07] MEDS ORDERED: HYDROCODONE/ACETAMINOPHEN 5-325 MG (6 TAB/ER DISP) PO PRN ×2 (09:06→09:20)
--- NOTE | 2019-11-07 09:12 | ER Document Report ---
ED General - General Chief Complaint: Hand Swelling Stated Complaint: HAND SWELLING, PAIN Notes: Patient is a 49-year-old -[place] female with a past medical history of carpal tunnel who presents to the emergency department with a chief complaint of bilateral hand pain. She states this is a chronic problem. She states it just seems to be worsening. She was seen by a specialist in [place] where she used to live. States that she was deemed disabled with both hands secondary to her neuromuscular testing results. She was recommended surgery and given bracing but states that she is not been able to follow through since she moved. She no longer has the braces. She has never had injections of cortisone. She does admit to numbness and tingling in the distal fingers. Denies any fall, blunt injury or trauma. Admits to some occasional swelling in the hands. States pain is worse at night. TRAVEL OUTSIDE OF THE [place] IN LAST 30 DAYS: No - Related Data Allergies/Adverse Reactions: naproxen Allergy (Verified 03/30/19 15:49) Penicillins Allergy (Verified 03/30/19 15:49) Past Medical History - Social History Smoking Status: Never Smoker Chew tobacco use (# tins/day): No Frequency of alcohol use: Social Drug Abuse: None Family History: Reviewed & Not Pertinent, Arthritis Patient has suicidal ideation: No Patient has homicidal ideation: No Renal/ Medical History: Denies: Hx Peritoneal Dialysis Past Surgical History: Reports: Hx Tubal Ligation - Immunizations Hx Diphtheria, Pertussis, Tetanus Vaccination: Yes Review of Systems - Review of Systems Musculoskeletal: Joint pain, Joint swelling -: Yes All other systems reviewed and negative Physical Exam - Vital signs Vitals: Temp Pulse Resp BP Pulse Ox 97.3 F 94 18 158/81 H 98 11/07/19 08:16 11/07/19 08:16 11/07/19 08:16 11/07/19 08:16 11/07/19 08:16 - General General appearance: Appears well, Alert In distress: None - Respiratory Respiratory status: No respiratory distress Chest status: Nontender Breath sounds: Normal Chest palpation: Normal - Cardiovascular Rhythm: Regular Heart sounds: Normal auscultation - Extremities Wrist: Other - Positive Tinel and Phalen's bilaterally. Full passive range of motion of the wrist bilaterally. 2+ radial bilaterally. No deformity or swelling of the wrist. Hand: Other - Mild tenderness to the bilateral hands. There is some tenderness palpation of the palmar surface of the proximal right hand, nontender left hand. Patient reports decreased sensation in the fingers distally. Displays full range of motion of the hands as well as full strength with and without resis tance. - Neurological Neuro grossly intact: Yes Cognition: Normal Orientation: AAOx4 [place] Coma Scale Eye Opening: Spontaneous [place] Coma Scale Verbal: Oriented [place] Coma Scale Motor: Obeys Commands [place] Coma Scale Total: 15 Speech: Normal - Psychological Associated symptoms: Normal affect, Normal mood - Skin Skin Temperature: Warm Skin Moisture: Dry Skin Color: Normal Course - Re-evaluation Re-evalutation: 11/07/19 09:09 History and physical consistent with an ongoing chronic discomfort secondary to carpal tunnel. Patient will be given a short course of pain medications. We discussed bracing for relief, specifically at night. Will refer to Ortho/hand for further evaluation, possible cortisone injections and or surgical consultation. Consult her at length regarding the importance of outpatient follow-up and advised she return here or any ER immediately with any new, persistent or worsening symptoms. She verbalized understood and agreed. - Vital Signs Vital signs: Temp Pulse Resp BP Pulse Ox 97.3 F 94 18 158/81 H 98 11/07/19 08:16 11/07/19 08:16 11/07/19 08:16 11/07/19 08:16 11/07/19 08:16 Discharge - Discharge Clinical Impression: Carpal tunnel syndrome Qualifiers: Laterality: bilateral Qualified Code(s): G56.03 - Carpal tunnel syndrome, bilateral upper limbs Condition: Stable Disposition: HOME, SELF-CARE Instructions: Carpal Tunnel Syndrome ([facility]) Additional Instructions: Please follow-up with the surgeon as referred and discussed. Return here or any ER immediately with any new, persistent or worsening symptoms. Referrals: NADEEM ANDRE JR, DO [ACTIVE PROVISIONAL STAFF] - Follow up as needed
[2019-11-07 09:26] VITALS: BP 134/88
== END 2019-11-07 09:39 | disposition home or self-care (01) ==
LOC: ER 08:15
DX: G56.03 Carpal tunnel syndrome, bilateral upper limbs (principal); Z88.8 Allergy status to other drugs, medicaments and biological substances; Z88.0 Allergy status to penicillin
CPT/HCPCS: 99283